=== PATIENT | male | born 1985 | race Two or more races ===

== ENCOUNTER 2022-06-26 16:15 | Emergency (ER) | payer MEDICAID, OTHER ==
[~2022-06-26] VITALS: Ht 167.6 cm; Wt 70.5 kg
[2022-06-26 20:54] VITALS: BP 137/71
[2022-06-26 21:24] LABS: Urine Bacteria NONE SEEN /hpf (None Seen); Urine Blood Negative /uL (Negative); Urine Mucus FEW (None Seen); Urine Specific Gravity 1.022 (1.001-1.035); Urine WBC 1 /hpf (0 - 3)
[2022-06-26] MEDS ORDERED: IBUP800T26 PO (23:24)
== END 2022-06-26 23:36 | disposition home or self-care (01) ==
LOC: ER 16:15
DX: R10.30 Lower abdominal pain, unspecified (principal)
CPT/HCPCS: 76870; 81001

== ENCOUNTER 2024-06-10 21:47 | Emergency (ER) | payer MEDICAID ==
[~2024-06-10] VITALS: Ht 170.2 cm; Wt 95.3 kg
[~2024-06-10 21:47] MED LIST: IBUP-1455 PO
[2024-06-10 21:50] VITALS: BP 139/84; PULSE 68; RESP 16; O2SAT 99
[2024-06-10 22:23] LABS: Basophils # (auto) 0 10 ^3/uL (0-0.2); Basophils % (auto) 0.5 % (0.0-2.0); Eosinophils # (auto) 0.1 10 ^3/uL (0-0.8); Eosinophils % (auto) 1.5 % (0.0-7.0); Hematocrit 42.3 % (41.0-53.0); Hemoglobin 14.5 g/dL (13.5-17.5); Lymphocytes # (auto) 1.5 10 ^3/uL (0.4-5.4); Lymphocytes % (auto) 23.5 % (10.0-50.0); Mean Corpuscular Hemoglobin 29.7 pg (28.0-32.0); Mean Corpuscular Hgb Conc. 34.4 g/dL (32.0-36.0); Mean Corpuscular Volume 86.4 fL (80.0-100.0); Monocytes # (auto) 0.5 10 ^3/uL (0-1.3); Monocytes % (auto) 7.5 % (0.0-12.0); Neutrophils # (auto) 4.3 10 ^3/uL (1.6-8.6); Nucleated Red Blood Cells % 0.1 %; Red Blood Cells 4.89 10^6/uL (4.5-5.90); Red Cell Distribution Width 14.2 % (11.8-14.3); White Blood Cell 6.4 10^3/uL (4.4-10.8)
[2024-06-10 22:42] LABS: Alanine Aminotransferase 15 U/L (7-40); Albumin 4.5 g/dL (3.2-4.8); Alkaline Phosphatase 59 U/L (46-116); Anion Gap 7 (5-15); Aspartate Aminotransferase 10 U/L (13-40); BUN/Creatinine Ratio 19.5 (10.0-20.0); Bilirubin, Total 0.4 mg/dL (0.2-1.0); Blood Urea Nitrogen 17 mg/dL (9-23); Calcium 9.5 mg/dL (8.7-10.4); Carbon Dioxide 26 mmol/L (20-30); Chloride 110 mmol/L (98-107); Glucose 110 mg/dL (74-106); Lipase 30 U/L (12-53); Potassium 3.9 mmol/L (3.5-5.1); Sodium 143 mmol/L (136-145); Total Protein 7.2 g/dL (5.7-8.2)
== END 2024-06-11 00:24 | disposition home or self-care (01) ==
LOC: ER 21:47
DX: G51.9 Disorder of facial nerve, unspecified (principal)
CPT/HCPCS: 36415; 70450; 80053; 83605; 83690; 85025

== ENCOUNTER 2024-07-01 17:51 | Emergency (ER) | payer MEDICAID ==
[~2024-07-01] VITALS: Ht 170.2 cm; Wt 92.2 kg
[2024-07-01 18:23] VITALS: BP 120/84; PULSE 89; RESP 20; TEMP 99.1; O2SAT 96
[2024-07-01] MEDS: KETOROLAC TROMETH 60MG/2ML VIAL IM ONE (18:41)
[2024-07-01] MEDS: DexAMETHasone SOD PHOS 10MG/1ML VIAL INJ IM ONE (18:41)
[2024-07-01] MEDS ORDERED: BUTA1CAP PO (19:09)
== END 2024-07-01 19:20 | disposition home or self-care (01) ==
LOC: ER 17:51
DX: G44.229 Chronic tension-type headache, not intractable (principal); Z88.6 Allergy status to analgesic agent
CPT/HCPCS: 96372; 99284; J1100; J1885

== ENCOUNTER 2024-07-07 07:25 | Emergency (ER) | payer MEDICAID ==
[~2024-07-07] VITALS: Ht 170.2 cm; Wt 91.4 kg
[~2024-07-07 07:25] MED LIST changes: +BUTA1CAP PO
[2024-07-07 07:53] VITALS: BP 123/87; PULSE 74; RESP 18; TEMP 99.3; O2SAT 99
[2024-07-07] MEDS: ONDANSETRON ODT 4 MG TAB PO ONE (08:10)
[2024-07-07] MEDS: SUMAtriptan SUCCINATE 6 MG/0.5 ML VL SC ONE (08:10)
[2024-07-07] MEDS ORDERED: SUMA50TA2 PO (08:32)
== END 2024-07-07 08:47 | disposition home or self-care (01) ==
LOC: ER 07:25
DX: G43.009 Migraine without aura, not intractable, without status migrainosus (principal); Z79.899 Other long term (current) drug therapy
CPT/HCPCS: 96372; 99283; J3030; Q0162

== ENCOUNTER 2024-07-14 11:02 | Emergency (ER) | payer MEDICAID ==
[~2024-07-14] VITALS: Ht 167.6 cm; Wt 90.2 kg
[~2024-07-14 11:02] MED LIST changes: +SUMA50TA2 PO
[2024-07-14 11:43] VITALS: BP 128/87; TEMP 98.8
[2024-07-14 11:44] VITALS: PULSE 86; RESP 18; O2SAT 98
[2024-07-14] MEDS: KETOROLAC TROMETH 60MG/2ML VIAL IM ONE (11:53)
[2024-07-14] MEDS ORDERED: BACL10TA PO (12:15)
== END 2024-07-14 12:20 | disposition home or self-care (01) ==
LOC: ER 11:02
DX: G44.209 Tension-type headache, unspecified, not intractable (principal); F41.9 Anxiety disorder, unspecified
CPT/HCPCS: 96372; 99283; J1885

== ENCOUNTER 2025-06-12 18:37 | Emergency (ER) | payer MEDICAID ==
[~2025-06-12] VITALS: Ht 170.2 cm; Wt 109.1 kg
[~2025-06-12 18:37] MED LIST changes: +BACL10TA PO
[2025-06-12 18:45] VITALS: PULSE 77; RESP 16; O2SAT 95
[2025-06-12 19:17] LABS: Hematocrit 44.5 % (41.0-53.0); Hemoglobin 15.3 g/dL (13.5-17.5); Mean Corpuscular Hemoglobin 29.2 pg (28.0-32.0); Mean Corpuscular Volume 85.3 fL (80.0-100.0); Nucleated Red Blood Cells % 0.1 %
--- NOTE | 2025-06-12 19:25 | ED.PDOC ---
General HPI Comments 39-year-old male presents to ER with complaints of testicular pain x2 weeks. Patient reports he has been experiencing intermittent left-sided testicular pain x2 weeks. He rates his current pain a 3/10 to left testicle with radiation towards the left thigh. Denies use of medications for current symptoms presents to ER ambulatory, with steady gait, in no distress. States he is not sexually active, denying any exposure to STD. Denies fever, body aches, chills, n/v, abdominal/pelvic pain, skin changes, back/flank pain, changes in urination or any further symptoms/complaints Chief Complaint: Testicle Pain Time Seen by MD: 18:43 Primary Care Provider: JESENIA Reviewed notes: Nurses Notes, Medications Allergies: Coded Allergies: NO KNOWN ALLERGIES (Unverified , 06/26/22) Home Meds Active Scripts Baclofen (Baclofen) 10 Mg Tab, 10 MG PO QHSP PRN, #20 TAB Prov:MITCHELL GALAN 07/14/24 Sumatriptan Succinate (Imitrex) 50 Mg Tab, 1 TAB PO BID, #16 TAB Prov:MITCHELL GALAN 07/07/24 Hcjzydudkd-Wlvgzpytfjpmb-Scqhe (Butalbital/Acetaminophen/ 50-300-40 mg) 1 Cap Cap, 1 CAP PO HS for 5 Days, #5 CAP Prov:SHEN PAGE [employer] 07/01/24 Ibuprofen Micronized (Ibuprofen) 800 Mg Tab, 800 MG PO TID PRN, #30 TAB Prov:RACHAEL DANIELS [facility] 06/26/22 Mode of Arrival: Ambulatory Past Medical History PAST MEDICAL HISTORY: Anxiety Surgical History: Denies all surgeries Family History Family History: Unknown Social History Smoker: Non-Smoker Alcohol: Denies ETOH Use Drugs: Denies Drug Use Lives In: Home Constitutional: denies: chills, diaphoresis, fatigue, fever, malaise, sweats, weakness, others EENTM: denies: blurred vision, double vision, ear bleeding, ear discharge, ear drainage, ear pain, ear ringing, eye pain, eye redness, hearing loss, mouth pain, mouth swelling, nasal discharge, nose bleeding, nose congestion, nose pain, photophobia, tearing, throat pain, throat swelling, voice changes, others Respiratory: denies: cough, hemoptysis, orthopnea, SOB at rest, shortness of breath, SOB with excertion, stridor, wheezing, others Cardiovascular: denies: chest pain, dizzy spells, diaphoresis, Dyspnea on exertion, edema, irregular heart beat, left arm pain, lightheadedness, palpitations, PND, syncope, others Gastrointestinal: denies: abdomen distended, abdominal pain, blood streaked bowels, constipated, diarrhea, dysphagia, difficulty swallowing, hematemesis, melena, nausea, poor appetite, poor fluid intake, rectal bleeding, rectal pain, vomiting, others Genitourinary: reports: others (As stated in HPI) Neurological: denies: dizziness, fainting, headache, left sided numbness, left sided weakness, numbness, paresthesia, pre-existing deficit, right sided numbness, right sided weakness, seizure, speech problems, tingling, tremors, weakness, others Musculoskeletal: denies: back pain, gout, joint pain, joint swelling, muscle pain, muscle stiffness, neck pain, others Integumetry: denies: bruises, change in color, change in hair/nails, dryness, laceration, lesions, lumps, rash, wounds, others Allergic/Immunocompromised: denies: Difficulty Healing, Frequent Infections, Hives, Itching, others Hematologic/Lymphatic: denies: anemia, blood clots, easy bleeding, easy bruising, swollen glands, others Endocrine: denies: excessive hunger, excessive sweating, excessive thirst, excessive urination, flushing, intolerance to cold, intolerance to heat, unexplained weight gain, unexplained weight loss, others Psychiatric: denies: anxiety, bipolar disorder, depression, hopeless, panic disorder, schizophrenia, sleepless, suicidal, others Physical Exam General Appearance: No Apparent Distress, Obese HEENT: PERRL/EOMI Neck: Full Range of Motion, Non-Tender, Normal Respiratory: Chest Non-Tender, Lungs Clear, No Accessory Muscle Use, No Respiratory Distress, Normal Breath Sounds Cardiovascular: No Murmur, No Gallop, Regular Rate/Rhythm Breast Exam: Deferred Gastrointestinal: NOT DONE Genitalia: Other (Slight TTP to left side of scrotum noted. No high-riding testicles noted bilaterally. Positive cremasteric reflex noted bilaterally. No skin changes appreciated. Remainder of genitalia examination-unremarkable) Pelvic: Deferred Rectal: Deferred Extremities: Normal capillary refill, Normal range of motion Neurologic: Alert, No Motor Deficits, Normal Affect, Normal Mood, No Sensory Deficits Cerebellar Function: Normal Reflexes: Normal Skin: Dry, Normal Color, Warm Lymphatic: No Adenopathy Was a procedure done? Was a procedure done?: No Sedation Sedation?: No Differential Diagnosis Kidney stone (Female): N/A Penile/Scrotal: Hydrocele, Testicular Torsion, Urolithiasis, Urinary Retention Urinary Problem (Male): UTI X-Ray, Labs, Meds, VS Vital Signs Date Time Temp Pulse Resp B/P (MAP) Pulse Ox O2 Delivery O2 Flow Rate FiO2 06/12/25 18:45 77 16 95 Room Air* 0 21 06/12/25 18:45 97.8 77 16 131/75 (93) 95 97.8 Lab Test 06/12/25 19:10 06/12/25 19:06 Range/Units Urine Color Light-yellow Yellow Urine Clarity Clear Clear Urine pH 6.5 5.0-9.0 Urine Specific [place] 1.022 1.001-1.035 Urine Protein Negative Negative Urine Ketones Negative Negative Urine Blood Negative Negative /uL Urine Nitrite Negative Negative Urine Bilirubin Negative Negative Urine Urobilinogen Normal Negative mg/dL Urine Leukocyte Esterase Negative Negative /uL Urine RBC 1 0 - 3 /hpf Urine Microscopic WBC 1 0-3 /HPF Urine Squamous Epithelial Cells Few <5 /hpf Urine Bacteria None seen None Seen /hpf Urine Glucose Normal Normal mg/dL White Blood Count 6.8 4.4-10.8 10^3/uL Red Blood Count 5.22 4.5-5.90 10^6/uL Hemoglobin 15.3 13.5-17.5 g/dL Hematocrit 44.5 41.0-53.0 % Mean Corpuscular Volume 85.3 80.0-100.0 fL Mean Corpuscular Hemoglobin 29.2 28.0-32.0 pg Mean Corpuscular Hemoglobin Concent 34.3 32.0-36.0 g/dL Red Cell Distribution Width 13.9 11.8-14.3 % Platelet Count 269 140-450 10^3/uL Mean Platelet Volume 7.4 6.9-10.8 fL Neutrophils (%) (Auto) 69.9 37.0-80.0 % Lymphocytes (%) (Auto) 21.8 10.0-50.0 % Monocytes (%) (Auto) 6.7 0.0-12.0 % Eosinophils (%) (Auto) 1.2 0.0-7.0 % Basophils (%) (Auto) 0.4 0.0-2.0 % Neutrophils # (Auto) 4.7 1.6-8.6 10 ^3/uL Lymphocytes # (Auto) 1.5 0.4-5.4 10 ^3/uL Monocytes # (Auto) 0.5 0-1.3 10 ^3/uL Eosinophils # (Auto) 0.1 0-0.8 10 ^3/uL Basophils # (Auto) 0 0-0.2 10 ^3/uL Nucleated Red Blood Cells 0.1 % PATIENT: CONNIE RENTERIA ACCT: [id number] UNIT: [id number] : 1985 LOC: ER ROOM / BED: / AGE / SEX: 39 / M ADM STATUS: REG ER SERVICE 1201 ORDERING PHYSICIAN: RIGO GRACIA PROCEDURE(s): TESUS - TESTICULAR ULTRASOUND REASON: left testicular pain ORDER NUMBER(s): [id number], ACCESSION NUMBER(s): [id number] SCROTAL ULTRASOUND CLINICAL HISTORY: left testicular pain COMPARISON: TESTICULAR ULTRASOUND on DOS: 06/26/22 TECHNIQUE: Grayscale, color-flow, and spectral Doppler ultrasound of the scrotum and its contents was performed.. FINDINGS: Right testis: Measures 4.1 x 2.9 x 4.4 cm. No discrete, sizable parenchymal lesions identified. Normal blood flow on spectral analysis. Left testis: Measures 3.5 x 2.5 x 3.3 cm. No discrete, sizable parenchymal lesions identified. Normal blood flow on spectral analysis. Epididymides: Uniform echotexture, without hyperemia. Hydrocele: No sizable hydroceles. Other: Left varicocele is noted. Previously identified right varicocele is not apparent at this time. IMPRESSION: Left varicocele. No sonographic evidence of testicular torsion time. ATED BY: LUIS MAYO MD DICTATED DATE/TIME: 06/12/252009 SIGNED BY: LUIS MAYO MD SIGNED DATE/TIME: 06/12/252009 CC: CBC reviewed-unremarkable Urinalysis reviewed-unremarkable Testicular ultrasound reviewed Scrotal support discussed and advised Advised to follow up with PCP and urologist in 1-2 days Patient verbalized understanding and agreeable with current plan of care Advised to return to ER immediately if symptoms worsen Images Reviewed?: Images reviewed and evaluated by me Time of 1ST Reevaluation: 19:22 Reevaluation 1ST: N/A Patient Education/Counseling: Diagnosis, Treatment, Prognosis, Need For Follow Up Family Education/Counseling: No Family Present SEPSIS Sepsis Screen Date sepsis recognized/suspect: Jun 12, 2025 Time Sepsis recognized/suspect: 1844 Recent Procedure: No On Antibiotic Therapy: No Respiratory Rate >20: No Heart Rate >90: No Temp<36 C (96.8 F) or >38.3 C: No SBP <90 or MAP <65 mmHG: No New Acute Mental Status Change: No Is the patient on CPAP, BIPAP,: No Physician Orders Testicular Ultrasound (06/12/25 18:59) Vital Signs Date Time Temp Pulse Resp B/P (MAP) Pulse Ox O2 Delivery O2 Flow Rate FiO2 06/12/25 18:45 77 16 95 Room Air* 0 21 06/12/25 18:45 97.8 77 16 131/75 (93) 95 97.8 Laboratory Tests Test 06/12/25 19:06 White Blood Count 6.8 10^3/uL (4.4-10.8) Departure 1 Departure Time of Disposition: 20:32 Impression: Primary Impression: Left varicocele Disposition: 01 HOME / SELF CARE / HOMELESS Condition: Stable Discharged With: Self Critical Care Note Critical Care Time?: No Stability Stability form required: No Heart Score Heart Score: Heart Score Response (Comments) Value History N/A 0 EKG N/A 0 Age N/A 0 Risk Factors N/A 0 Troponin N/A 0 Total 0 RIGO GRACIA Jun 12, 2025 19:25
[2025-06-12 19:28] LABS: Urine Protein, UAD Negative (Negative)
--- NOTE | 2025-06-12 20:12 | DVH ---
SCROTAL ULTRASOUND CLINICAL HISTORY: left testicular pain COMPARISON: TESTICULAR ULTRASOUND on DOS: 06/26/22 TECHNIQUE: Grayscale, color-flow, and spectral Doppler ultrasound of the scrotum and its contents was performed.. FINDINGS: Right testis: Measures 4.1 x 2.9 x 4.4 cm. No discrete, sizable parenchymal lesions identified. Merle l blood flow on spectral analysis. Left testis: Measures 3.5 x 2.5 x 3.3 cm. No discrete, sizable parenchymal lesions identified. Merle l blood flow on spectral analysis. Epididymides: Uniform echotexture, without hyperemia. Hydrocele: No sizable hydroceles. Other: Left varicocele is noted. Previously identified right varicocele is not apparent at this time . IMPRESSION: Left varicocele. No sonographic evidence of testicular torsion time.
[2025-06-12 20:54] VITALS: BP 131/75; PULSE 77; RESP 16; TEMP 97.8; O2SAT 95
== END 2025-06-12 20:55 | disposition home or self-care (01) ==
LOC: ER 18:37
DX: I86.1 Scrotal varices (principal); F41.9 Anxiety disorder, unspecified; Z79.899 Other long term (current) drug therapy
CPT/HCPCS: 36415; 76870; 81001; 85025